=== PATIENT | female | born 1955 | race Caucasian/White ===

== ENCOUNTER 2017-11-13 08:35 | Emergency (ER) | payer OTHER ==
[~2017-11-13] VITALS: Ht 160 cm; Wt 85.7 kg
[~2017-11-13 08:35] MED LIST: ELAVIL10 MG PO; LEVAQUIN500 MG PO; LORTAB 5-325 M1 EACH PO; MEDROL DOSEPAK4 MG PO; MOTRIN800 MG PO; PROAIR HFA8.5 GM IH; TESSALON PERLE100 MG PO
[2017-11-13] MEDS ORDERED: FIORICET 50-301 EAC1 PO (12:25)
[2017-11-13 13:02] VITALS: BP 140/79
== END 2017-11-13 13:04 | disposition home or self-care (01) ==
LOC: EME 08:35
DX: G43.909 Migraine, unspecified, not intractable, without status migrainosus (principal); F32.9 Major depressive disorder, single episode, unspecified; Z88.1 Allergy status to other antibiotic agents; Z88.2 Allergy status to sulfonamides; Z88.0 Allergy status to penicillin
CPT/HCPCS: 70450; 99281; 99284